=== PATIENT | male | born 1970 | race Caucasian/White ===

== ENCOUNTER 2020-01-12 06:34 | Outpatient (CLI) | payer OTHER, SELFPAY ==
--- NOTE | ~2020-01-12 | XR_ITS ---
EXAMINATION: XR sacroiliac joints min 3V INDICATION: Low back pain TECHNIQUE: Three views of the sacroiliac joints are obtained. COMPARISON: None available FINDINGS: Bone alignment is normal. There is no fracture. No abnormal sclerosis or erosion is noted i n the sacroiliac joints. The bowel gas pattern is normal. IMPRESSION: 1. No acute osseous abnormality. Reviewed, dictated and finalized at location A.
--- NOTE | ~2020-01-12 | XR_ITS ---
EXAMINATION: XR lumbar spine 2-3V DATE: 01/12/2020 06:59 INDICATION: Low back pain TECHNIQUE: Anteroposterior and lateral views of the lumbar spine, and cone-down lateral view of the l umbosacral junction were obtained. COMPARISON: None. FINDINGS: The vertebral body heights and alignment are normal. There is mild loss of intervertebral d isc space height at L5-S1. Mild facet osteoarthritis is noted in the lower lumbar spine. There is no fracture. Small degenerative osteophytes project from the anterior endplates of multiple vertebral domitila dies. The bowel gas pattern is normal. IMPRESSION: 1. Mild lumbar spondylosis without acute findings. Reviewed, dictated and finalized at location A.
== END 2020-01-12 06:35 | disposition home or self-care (01) ==
LOC: ANHIMG 06:40
PROVIDERS: PCP Internal Medicine; Visit Provider Surgery
DX: M47.896 Other spondylosis, lumbar region (principal)
CPT/HCPCS: 72100; 72202

== ENCOUNTER 2024-10-14 01:02 | Day surgery (SDC) | payer BC, SELFPAY ==
[2024-10-11 14:04] VITALS: BMI 27.5
--- OUTSIDE RECORDS SUMMARY | 2024-10-14 01:06 | XMS_ITS | Referral Summary ---
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 Name Role Phone Unknown, Notinfile Primary Care Provider Unavail able Allergies Active Allergy Reactions Criticality Noted Date Comments Sulfa (Sulfonamide Antibiotics) Unknown 09/2020 Medications omeprazole (PriLOSEC) 20 mg capsule Take 20 mg by mouth daily Active atorvastatin (LIPITOR) 10 mg tablet Take 10 mg by mouth daily 04/23/2021 Active Active Problems No known active problems Social History Tobacco Use Types Packs/Day Years Used Date Smoking Tobacco: Never Personal Safety Answer Date Recorded Getting School Help Needed Not on file 10/10 Sex and Gender Information Value Date Recorded Sex Assigned at Not on file Legal Sex Male 6:11 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 Gender Identity Not on file Sexual Orientation Not on file Last Filed Vital Signs Vital Sign Reading Time Taken Comments Blood Pressure 116/80 06/29/2021 5:05 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 Pulse 98 06/29/2021 5:05 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 Temperature 36.8 C (98.3 F) 06/29/2021 5:05 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 Respiratory Rate 16 06/29/2021 5:05 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 Oxygen Saturation 99% 06/29/2021 5:05 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 Inhaled Oxygen Concentration - - Weight 102.5 kg (226 lb) 06/29/2021 5:05 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 Height 182.9 cm (6') 06/29/2021 5:05 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 Body Mass Index 30.65 06/29/2021 5:05 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 Plan of Treatment Not on file Insurance [facility] Care Teams Granite Cutter Apprentice Relationship Specialty Start Date End Date Unknown, Notinfile PCP - General 06/29/21
--- OUTSIDE RECORDS SUMMARY | 2024-10-14 01:06 | XMS_ITS | Clinical Summary ---
Author Organization [facility] [address] [place] Address [address] [place] [id number] Care Team Providers Care Research Assoc Name Role Phone Unknown, Notinfile Primary Care Provider Unavail able Allergies Active Allergy Reactions Criticality Noted Date Comments Sulfa (Sulfonamide Antibiotics) Unknown 09/2020 Medications omeprazole (PriLOSEC) 20 mg capsule Take 20 mg by mouth daily Active atorvastatin (LIPITOR) 10 mg tablet Take 10 mg by mouth daily 04/23/2021 Active Active Problems No known active problems Surgical History Surgery Date Site/Laterality Comments HERNIA REPAIR TONSILLECTOMY Medical History Medical History Date Comments High cholesterol Social History Tobacco Use Types Packs/Day Years Used Date Smoking Tobacco: Never Personal Safety Answer Date Recorded Getting School Help Needed Not on file 10/10 Sex and Gender Information Value Date Recorded Sex Assigned at Not on file 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 Gender Identity Not on file Sexual Orientation Not on file Obstetrics History Last Filed Vital Signs Vital Sign Reading Time Taken Comments Blood Pressure 116/80 06/29/2021 5:05 PM TILE GRINDER Pulse 98 06/29/2021 5:05 PM TILE GRINDER Temperature 36.8 C (98.3 F) 06/29/2021 5:05 PM TILE GRINDER Respiratory Rate 16 06/29/2021 5:05 PM TILE GRINDER Oxygen Saturation 99% 06/29/2021 5:05 PM TILE GRINDER Inhaled Oxygen Concentration - - Weight 102.5 kg (226 lb) 06/29/2021 5:05 PM TILE GRINDER Height 182.9 cm (6') 06/29/2021 5:05 PM TILE GRINDER Body Mass Index 30.65 06/29/2021 5:05 PM TILE GRINDER Plan of Treatment Not on file Insurance [employer] Care Teams Research Assoc Relationship Specialty Start Date End Date Unknown, Notinfile PCP - General 06/29/21
[2024-10-14 08:25] VITALS: BP 134/59; PULSE 72; RESP 18; TEMP 35.8; O2SAT 99; BMI 27.0
--- NOTE | 2024-10-14 08:38 | WPDANESEPPF ---
Anes - Initial Pre Proc Eval Procedure: Operation Date: 10/14/24 10:00 Proposed Procedures p Screening Colonoscopy - Khanh Joy MD Date/Time: 10/14/24 08:38 Surgeon: hKanh Joy MD Pre Op Diagnosis: screening colon Patient Data Age: 54 Gender: M Height: 1.83 m Weight: 90.3 kg Last Vital Signs Temp 35.8 C L 10/14/24 08:25 Pulse 72 10/14/24 08:25 Resp 18 10/14/24 08:25 BP 134/59 L 10/14/24 08:25 Pulse Ox 99 10/14/24 08:25 O2 Del Method Room Air 10/14/24 08:25 Allergies Allergy/AdvReac Type Severity Reaction Status Date / Time Sulfa (Sulfonamide Allergy Unknown Unknown Verified 10/14/24 08:31 Antibiotics) Home Medications ?Medication ?Instructions ?Recorded ?Confirmed ?Type sodium,potassium,mag sulfates 17.5 See Rx Instructions PO .COMPLEX 06/30/24 10/14/24 Rx gram-3.13 gram-1.6 gram oral soln #354 mL (Suprep Bowel Prep Kit) atorvastatin 10 mg tablet 10 mg PO DAILY #90 tabs 07/08/24 10/14/24 Rx omeprazole 10 mg capsule,delayed 10 mg PO DAILY #90 caps 07/08/24 10/14/24 Rx release Patient hx anesthesia problems: none Family hx anesthesia problems: none Results Review: All pre-operative results and documents have been reviewed as part of the pre-operative evaluation. [facility] Past Medical History Medical History GERD (gastroesophageal reflux disease) Hyperlipidemia Surgical History Surgical History Hx of tonsillectomy H/O hernia repair double hernia repair Family History Family History Mother Family history of hypercholesterolemia Hypertension Father Family history of malignant neoplasm Chronic lymphatic leukemia Hypertension Sibling Lung cancer Grandparent Heart disease Social History Social History Smoking status: Never smoker Alcohol intake: current Drinks per week: 10 Alcohol use details: once a week Substance use: never Lack of Transportation: No Lack of Food: Never True Current Housing: I Have Housing Concerned About Future Housing: No Difficulty Paying Gas/Electric Bills: No Difficulty Paying for Meds: No Currently Unemployed: No Education: Bachelor's Degree Difficulty w/ Childcare or Family Care: No Living arrangements: with family Occupation/Education: occupation 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 Informed Consent: The patient's anesthetic plan and its attendant risks and benefits were discussed with the patient/family/POA. Questions were solicited and answers provided to the satisfaction of the patient/family/POA.
[2024-10-14] MEDS: LACTATED RINGERS 1,000 ML 150 ML IV CONT (08:44)
--- NOTE | 2024-10-14 08:46 | P.HP_ITS ---
H&P: HPI History of Present Illness Date/Time: 10/14/24 08:46 Chief Complaint: Screening colonoscopy Narrative: This is the patient's first colonoscopy. There are no GI symptoms and there is no family history of colorectal cancer. Review of Systems Review of Systems: All systems reviewed & are unremarkable except as noted in HPI and below PMFSH Past Medical History Medical History GERD (gastroesophageal reflux disease) Hyperlipidemia Surgical History Surgical History Hx of tonsillectomy H/O hernia repair double hernia repair Family History Family History Mother Family history of hypercholesterolemia Hypertension Father Family history of malignant neoplasm Chronic lymphatic leukemia Hypertension Sibling Lung cancer Grandparent Heart disease Social History Social History Smoking status: Never smoker Alcohol intake: current Drinks per week: 10 Alcohol use details: once a week Substance use: never Lack of Transportation: No Lack of Food: Never True Current Housing: I Have Housing Concerned About Future Housing: No Difficulty Paying Gas/Electric Bills: No Difficulty Paying for Meds: No Currently Unemployed: No Education: Bachelor's Degree Difficulty w/ Childcare or Family Care: No Living arrangements: with family Occupation/Education: occupation 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 Gender identity (if verbalized by the patient): Male Spiritual care concerns: No Meds Home Medications and Allergies Home Medications ?Medication ?Instructions ?Recorded ?Confirmed ?Type sodium,potassium,mag sulfates 17.5 See Rx Instructions PO .COMPLEX 06/30/24 10/14/24 Rx gram-3.13 gram-1.6 gram oral soln #354 mL (Suprep Bowel Prep Kit) atorvastatin 10 mg tablet 10 mg PO DAILY #90 tabs 07/08/24 10/14/24 Rx omeprazole 10 mg capsule,delayed 10 mg PO DAILY #90 caps 07/08/24 10/14/24 Rx release Allergies Allergy/AdvReac Type Severity Reaction Status Date / Time Sulfa (Sulfonamide Allergy Unknown Unknown Verified 10/14/24 08:31 Antibiotics) Vital Signs Vital Signs - 24 hr 10/14/24 08:25 Temperature 96.5 F L Pulse Rate 72 Respiratory Rate 18 Blood Pressure 134/59 L Pulse Oximetry 99 Oxygen Delivery Room Air Exam Const: General: cooperative and healthy appearing Resp: Effort & Inspection: normal respiratory effort and able to speak in complete sentences Auscultation: clear to auscultation bilaterally Cardio: Rate: regular rate Rhythm: regular rhythm GI: Inspection: normal to inspection GI Palp: No No hepatosplenomegaly present Auscultation: normal bowel sounds Rectal Exam: deferred Skin: General skin exam: normal color Psych: Appearance: grossly normal Mental Status: mental status grossly normal Assessment and Plan Assessment and plan (1) Screening for colon cancer: Code(s): Z12.11 - Encounter for screening for malignant neoplasm of colon Status: Acute Assessment and Plan: The patient is deemed a good candidate for the procedure. Consent signed. Will proceed.
[2024-10-14] MEDS: SIMETHICONE ORAL SUSPENSION 20 MG/0.3 ML 30 ML BOTTLE 0.6 ML IRRIGATION (08:58)
[2024-10-14 09:15] VITALS: BP 116/75; PULSE 61; RESP 20; O2SAT 97
[2024-10-14 09:25] VITALS: BP 131/85; PULSE 67; RESP 18; O2SAT 98
[2024-10-14 09:35] VITALS: BP 135/82; PULSE 65; RESP 18; O2SAT 98
== END 2024-10-14 09:35 | disposition home or self-care (01) ==
PROVIDERS: PCP Internal Medicine; Referring Provider Nurse Practitioner; Visit Provider Internal Medicine Gastroenterology
PROC: 0DJD8ZZ Inspection of Lower Intestinal Tract, Via Natural or Artificial Opening Endoscopic (ICD-10-PCS; CPT 45378; principal; 2024-10-14 10:00)
DX: Z12.11 Encounter for screening for malignant neoplasm of colon (principal); K64.8 Other hemorrhoids; K57.30 Diverticulosis of large intestine without perforation or abscess without bleeding; E78.5 Hyperlipidemia, unspecified; K21.9 Gastro-esophageal reflux disease without esophagitis; Z98.890 Other specified postprocedural states; Z80.1 Family history of malignant neoplasm of trachea, bronchus and lung; Z80.6 Family history of leukemia; Z82.49 Family history of ischemic heart disease and other diseases of the circulatory system
CPT/HCPCS: 45378; J2704; J7120